=== PATIENT | female | born 1995 | race Caucasian/White ===

== ENCOUNTER 2017-11-13 05:57 | Day surgery (SDC) | payer OTHER ==
[2017-11-13] MEDS: BUPIVACAINE 0.25%/EPI (SDV) 30 ML INJ INJ
[2017-11-13] MEDS: INSULIN ASPART [NOVOLOG] 3 ML PEN SC (07:08)
[2017-11-13] MEDS ORDERED: MIDAZOLAM 1 MG/ML 2 ML INJ (07:20)
[2017-11-13] MEDS ORDERED: LIDOCAINE 2% (SDV) 5 ML INJ (07:23)
[2017-11-13] MEDS ORDERED: PROPOFOL 20 ML (07:23)
[2017-11-13] MEDS ORDERED: DEXAMETHASONE 4 MG/ML 1 ML INJ (07:42)
[2017-11-13] MEDS ORDERED: FAMOTIDINE 20 MG INJ (07:42)
[2017-11-13] MEDS ORDERED: ONDANSETRON 4 MG INJ (07:42)
[2017-11-13] MEDS ORDERED: FENTAnyl 50 MCG/ML VIAL (07:43)
[2017-11-13] MEDS ORDERED: CEFAZOLIN 1 GM INJ (07:44)
[2017-11-13] MEDS ORDERED: BUPIVACAINE 0.25%/EPI (SDV) 30 ML INJ (07:56)
[2017-11-13] MEDS ORDERED: INSULIN ASPART [NOVOLOG] 3 ML PEN SC (08:00)
[2017-11-13] MEDS ORDERED: KETOROLAC 30 MG INJ (08:05)
[2017-11-13] MEDS ORDERED: OXYCODONE/ACETAMINOPHEN (5/325) TAB PO ×4 (08:30)
[2017-11-13] MEDS ORDERED: HYDROmorphONE (0.2 MG/ML) 10ML SYG IV ×3 (08:30)
[2017-11-13] MEDS ORDERED: PROCHLORPERAZINE 10 MG INJ IV (08:30)
[2017-11-13] MEDS ORDERED: EPHEDrine SULFATE 50 MG/5 ML SYG IV (08:30)
[2017-11-13] MEDS ORDERED: DIPHENHYDRAMINE 50 MG INJ IV (08:30)
[2017-11-13] MEDS ORDERED: hydrALAzine 20 MG INJ IV (08:30)
[2017-11-13] MEDS ORDERED: FENTAnyl 50 MCG/ML VIAL IV ×3 (08:30)
[2017-11-13] MEDS ORDERED: MEPERIDINE 25 MG INJ IV (08:30)
[2017-11-13] MEDS ORDERED: morphine 2 MG INJ IV (08:30)
[2017-11-13] MEDS ORDERED: ONDANSETRON 4 MG INJ IV ×2 (08:30)
[2017-11-13] MEDS ORDERED: LABETALOL HCL 20MG INJ IV (08:30)
== END 2017-11-13 10:22 | disposition home or self-care (01) ==
LOC: SDS 05:57
DX: K64.8 Other hemorrhoids (principal); E11.9 Type 2 diabetes mellitus without complications; E78.5 Hyperlipidemia, unspecified
CPT/HCPCS: 46250; 82962; 88304